=== PATIENT | male | born 1955 | race Hispanic/Latino ===

== ENCOUNTER 2017-11-14 19:35 | Emergency (ER) | payer SELFPAY ==
[2017-11-14] MEDS ORDERED: Adacel (T-DAP) 0.5 ML VIAL ONE (21:02)
[2017-11-14] MEDS ORDERED: Bacitracin Zinc 1 Packet ONE (21:02)
[2017-11-14] MEDS ORDERED: cloNIDine 0.1 MG TAB ONE (21:20)
== END 2017-11-14 21:40 | disposition home or self-care (01) ==
LOC: ERS 19:35
DX: L03.011 Cellulitis of right finger (principal); I10 Essential (primary) hypertension; E11.9 Type 2 diabetes mellitus without complications
CPT/HCPCS: 87070; 87077; 87186; 87205; 90471; 90715

== ENCOUNTER 2019-02-26 13:10 | Inpatient (IN) | payer SELFPAY ==
[2019-02-26 14:11] LABS: #Eosinphils 0.5 thou/uL (0.0-0.7); #Lymphocytes 1.7 thou/uL (1.20-3.40); #Monocytes 0.4 thou/uL (0.11-0.59); #Neutrophils 9.7 thou/uL (1.40-6.50); %Basophils 0.1 % (0.0-1.0); %Eosinophils 3.8 % (0.0-10.0); %Lymphocytes 14.1 % (21.0-51.0); %Monocytes 3.1 % (0.0-10.0); Hemoglobin 12.7 g/dL (14.0-18.0); Mean Corpuscular HGB CONC 35.7 g/dL (32.0-36.0); Mean Corpuscular Hemoglobin 32.5 pg (27.0-31.0); Mean Platelet Volume 7.5 fL (7.4-10.4); Platelet Count 315 thou/uL (130-400); RBC Distribution Width 11.6 % (11.5-14.5); White Blood Cell (WBC) Count 12.3 thou/uL (4.8-10.8)
--- NOTE | 2019-02-26 14:31 | RAD ---
XR Foot Lt 3 View STANDARD History: Infection Comparison: None. Findings: There is also normal integrity and pathologic fracture of the fourth metatarsal neck. There is also pathologic fracture of the fourth proximal phalanx base. Loss of normal cortical integrity of the distal phalanx of the fourth toe. Mild vascular calcifications. Small plantar and dorsal calcaneal spurs. Impression: Osteomyelitis of the fourth metatarsal neck, proximal phalanx base, and distal phalanx wi th pathologic fractures of the metatarsal neck and proximal phalanx base.
[2019-02-26 14:38] LABS: ALT (SGPT) 19 U/L (8-55); AST (SGOT) 18 U/L (5-34); Albumin 4.2 g/dL (3.4-4.8); Alkaline Phosphatase 72 U/L (40-150); Anion Gap 15 mmol/L (10-20); BUN (Urea Nitrogen) 25 mg/dL (8.4-25.7); Bilirubin, Total 0.3 mg/dL (0.2-1.2); Calc. Creatinine Clearance 0 mL/min (70-130); Calcium 10.2 mg/dL (7.8-10.44); Carbon Dioxide 20 mmol/L (23-31); Chloride 106 mmol/L (98-107); Estimated GFR-MDRD 73; Globulin 3.6 g/dL (2.4-3.5); Glucose 157 mg/dL (80-115); Potassium 4.3 mmol/L (3.5-5.1); Protein, Total 7.8 g/dL (5.8-8.1); Sodium 137 mmol/L (136-145)
[2019-02-26] MEDS ORDERED: HYDROcodone/Acetaminophen 5/325 mg Tablet PO PRN ×2 (19:12)
[2019-02-26] MEDS ORDERED: Ondansetron ODT 4 MG TAB SL PRN ×2 (19:12→21:20)
[2019-02-26] MEDS ORDERED: Ondansetron PF 4 MG/2 ML Vial IVP PRN ×2 (19:12→21:20)
[2019-02-26] MEDS ORDERED: Acetaminophen 325 MG TAB PO PRN (19:12)
[2019-02-26 19:27] VITALS: BMI 26.9
[2019-02-26] MEDS ORDERED: Dextrose 50% Abboject 50 ML SYRINGE SLOW IVP PRN (21:20)
[2019-02-26] MEDS ORDERED: Acetaminophen 500 MG TAB PO PRN (21:20)
[2019-02-26] MEDS ORDERED: hydrALAZINE 20 MG/ML VIAL SLOW IVP PRN (21:20)
[2019-02-26] MEDS ORDERED: Dextrose 5% in Water 1,000 ML IV PRN (21:20)
[2019-02-26] MEDS ORDERED: HumaLOG 300 UNITS/3 ML VIAL SC PRN (21:20)
[2019-02-26] MEDS: Piperacillin/Tazobactam 3.375 GM in Sodium Chloride 0.9% 100 ML IVPB SCH (22:31)
--- NOTE | 2019-02-26 23:08 | HP ---
PRIMARY CARE PROVIDER: [facility] . CHIEF COMPLAINT: Left foot infection. HISTORY OF PRESENT ILLNESS: This is a 63-year-old Citizen Of The [place]-speaking male, who presents to [facility] Emergency Department complaining of persistent swelling, redness, and drainage to the left foot and specifically the left fourth toe. The patient noted ulceration of the dorsum on the fourth left toe approximately 4 weeks prior to this evaluation, seeking medical attention at his primary care provider. The patient received antibiotics orally for approximately 2 weeks, as well as received apparent intramuscular injections of antibiotics for approximately 4 days including local wound care at the clinic. The patient is unsure of the mechanism of injury and states he was unsure that he injured his foot until he saw discoloration and drainage. The patient has decreased sensation due to history of diabetes mellitus greater than 25 years. The patient underwent amputation of his right second toe several years prior to this evaluation due to diabetic complications and ulceration. The patient denies any specific increased pain in the foot due to loss of sensation. In the emergency room, the patient underwent general evaluation including plain radiographic imaging of the left foot showing destruction of the metatarsal neck and proximal phalanx of the fourth left toe. The patient received IV vancomycin 1 g and intravenous normal saline x1 liter. PAST MEDICAL HISTORY: 1. Diabetes mellitus type 2, greater than 25 years. 2. Hypertension. 3. Hyperlipidemia. 4. History of diabetic foot ulcer. PAST SURGICAL HISTORY: 1. Status post appendectomy. 2. Status post amputation of the second toe of the right foot. CURRENT MEDICATIONS: 1. Lisinopril 20 mg p.o. daily. 2. Glipizide 10 mg p.o. b.i.d. 3. Metformin 1000 mg p.o. b.i.d. ALLERGIES: NO KNOWN DRUG ALLERGIES. FAMILY HISTORY: Positive for diabetes mellitus and hypertension. SOCIAL HISTORY: The patient resides in the area, with his son. No current alcohol, tobacco, or illicit drug use. Accompanied by multiple family members including his daughter in the hospital. REVIEW OF SYSTEMS: CONSTITUTIONAL: Negative for weight loss or gain, ability to conduct usual activities. SKIN: Negative for rash, itching. EYES: Negative for double vision, pain. ENT/MOUTH: Negative for nose bleeding, neck stiffness, pain, tenderness. CARDIOVASCULAR: Negative for palpitations, dyspnea on exertion, orthopnea. RESPIRATORY: Negative for shortness of breath, wheezing, cough, hemoptysis, fever or night sweats. GASTROINTESTINAL: Negative for poor appetite, abdominal pain, heartburn, nausea, vomiting, constipation, or diarrhea. GENITOURINARY: Negative for urgency, frequency, dysuria, nocturia. MUSCULOSKELETAL: Negative for pain, swelling. NEUROLOGIC/PSYCHIATRIC: Negative for anxiety, depression. ALLERGY/IMMUNOLOGIC: Negative for skin rash, bleeding tendency. Otherwise negative except as stated per HPI. PHYSICAL EXAMINATION: VITAL SIGNS: On admission, blood pressure 179/67, pulse 112, respiratory rate 16, temperature 97.8 degrees Fahrenheit, O2 saturation 99% on room air. GENERAL APPEARANCE: This is a 63-year-old male, alert and oriented x3, Citizen Of [place]-speaking only, in on acute distress. HEENT: Pupils are equal, round, reactive to light and accommodation. Extraocular muscles are intact. No scleral icterus. No conjunctival injection. Nares patent. OP is clear. Teeth in fair repair. NECK: Supple. No cervical adenopathy. No thyromegaly. No carotid bruits. No JVD appreciated. Cervical spine with full active and passive range of motion. No meningeal signs noted. CHEST: Lungs are clear to auscultation bilaterally. CARDIOVASCULAR: S1-S2 without noted murmur, rub, or gallop. ABDOMEN: Rounded, soft, nontender, and nondistended. Bowel sounds are positive in all 4 quadrants. There is no hepatosplenomegaly. No abdominal bruits. No rebound or guarding appreciated. EXTREMITIES: Warm and dry with fair turgor. Left foot with mild edema and erythema at the distal aspect overlying the fourth metatarsal distally with ulceration and gangrenous changes of the left fourth toe. Maceration noted with blackened necrotic tissue circumferential. No tenderness to palpation. Decreased sensation to dull and sharp. Pulses are palpable distally at the dorsalis pedis, posterior tibial, and popliteal arteries bilaterally. Capillary refill less than 2 seconds. NEUROLOGIC: Cranial nerves 2 through 12 are grossly intact. Decreased sensation from the ankle to the entire foot bilaterally. PERTINENT LAB AND X-RAY FINDINGS: Basic metabolic profile within normal limits. Lactic acid level 1.3. LFTs within normal limits. CBC showed a white blood cell count of 12.3, hemoglobin 12.7, hematocrit 35.5, platelet count 315, with 79% neutrophils. Three views of the left foot dated 02/26/2019, showed osteomyelitis of the fourth metatarsal neck, proximal phalanx base and distal phalanx with pathological fractures of the metatarsal neck and proximal phalanx base. ASSESSMENT AND PLAN: 1. Left diabetic foot/osteomyelitis. The patient will be admitted to the medical floor. We will continue IV antibiotics with vancomycin 1 g IV q.12 hours with additional Zosyn 3.375 g IV q.6 hours. We will consult Wound Care Service for local care. Consult Vascular Surgery Service for evaluation and consideration for amputation. 2. Diabetes mellitus type 2 with peripheral neuropathy. Insulin sliding scale for reflexive coverage. Continue glipizide 10 mg b.i.d. and metformin 1000 mg b.i.d. Accu-Cheks before meals and at bedtime. ADA diet. 3. Hypertension. Resume lisinopril 20 mg daily. 4. Chronic kidney disease, stage 2. Avoid nephrotoxic agents and limit contrast exposure. Serial creatinine monitoring. 5. Prophylaxis. Update tetanus immunization prior to discharge. Pepcid 20 mg p.o. b.i.d. SCDs. 6. Code status is full. Surrogate medical decision maker is the patient's daughter. Job ID: [id number]
[2019-02-27] MEDS: Vancomycin HCl 1 GM in Premix Bag 1 BAG IVPB SCH ×2 (03:08→14:09)
[2019-02-27] MEDS: Piperacillin/Tazobactam 3.375 GM in Sodium Chloride 0.9% 100 ML IVPB SCH ×4 (03:10→21:30)
[2019-02-27 05:42] LABS: Hemoglobin A1c 8.3 % (4.0-6.0)
[2019-02-27 05:57] LABS: Potassium 4.2 mmol/L (3.5-5.1); Sodium 134 mmol/L (136-145)
[2019-02-27 05:58] LABS: Anion Gap 13 mmol/L (10-20); BUN (Urea Nitrogen) 20 mg/dL (8.4-25.7); Calc. Creatinine Clearance 113 mL/min (70-130); Calcium 9.4 mg/dL (7.8-10.44); Carbon Dioxide 25 mmol/L (23-31); Chloride 100 mmol/L (98-107); Estimated GFR-MDRD Greater than 90; Glucose 132 mg/dL (80-115)
[2019-02-27 06:13] LABS: Hemoglobin 12.4 g/dL (14.0-18.0); Mean Corpuscular HGB CONC 34.5 g/dL (32.0-36.0); Mean Corpuscular Hemoglobin 31.6 pg (27.0-31.0); Mean Corpuscular Volume 91.6 fL (78.0-98.0); Mean Platelet Volume 7.2 fL (7.4-10.4); Platelet Count 272 thou/uL (130-400); RBC Distribution Width 11.7 % (11.5-14.5); Red Blood Cell (RBC) Count 3.93 mill/uL (4.70-6.10)
[2019-02-27 06:25] LABS: Band 3 % (5-11); Eosinophils 6 % (0-10); Lymphocytes 24 % (21-51); MDiff Complete? YES; Monocytes 3 % (0-10); Neutrophil 63 % (42-75); Reactive Lymphocytes 1 % (0-10)
[2019-02-27] MEDS: Famotidine 20 MG TAB PO SCH ×2 (08:01→19:48)
[2019-02-27] MEDS: metFORMIN 500 MG TAB PO SCH ×2 (08:02→17:09)
[2019-02-27] MEDS: Lisinopril 20 MG TAB PO SCH (08:02)
--- NOTE | 2019-02-27 16:53 | CON ---
DATE OF CONSULTATION: 02/27/2019 REQUESTING PHYSICIAN: Dr. Schwartz. CHIEF COMPLAINT: Left foot pain. HISTORY OF PRESENT ILLNESS: The patient is a 63-year-old diabetic man, who about a month ago noticed sore developing on the dorsum of his left fourth toe. He was started on oral antibiotics and eventually got intramuscular antibiotics, but in spite of that and local wound care, the wound on that toe progressed. It reached the point along with the degree of pain that he presented to the emergency room yesterday afternoon. He had eschar involving the dorsum of most of that toe and x-ray of his foot showed destruction of the distal metatarsal and proximal phalanx of the toe. The patient had a similar experience leading to amputation of the right second toe a few years ago. He has not had any antecedent crampy pain in his calves when he walks or nighttime pain in his feet while he professes to be able to feel his feet normally, his daughter, who assisted with translation and provided much of the history, says that she does not think he really does feel his feet normally. PAST MEDICAL HISTORY: Significant for hypertension and apparently, he has recently been told that he has high cholesterol. He has had a previous appendectomy and amputation of the right second toe. He has no known history of heart or lung disease. MEDICATIONS: His home medications are; 1. Lisinopril 20 mg a day. 2. Glipizide 10 mg b.i.d. 3. Metformin 1000 mg b.i.d. 4. A sliding scale insulin has been added to his regimen. 5. He has been started on Zosyn and vancomycin. ALLERGIES: DENIES ANY MEDICAL OR FOOD ALLERGIES. FAMILY HISTORY: Significant for diabetes and hypertension. SOCIAL HISTORY: He is a nonsmoker. Does not drink alcohol. REVIEW OF SYSTEMS: Negative for any chest pain, pressure, or squeezing. Negative for any shortness of breath. Negative for any claudication. PHYSICAL EXAMINATION: GENERAL: He is not toxic appearing and he is in no distress. VITAL SIGNS: His temperature in the emergency room was 97.8 and his T-max since admission to the [facility] has been 98.1. Initially, his heart rate was 112 and blood pressure 179/67. At the time of transfer out of the emergency room, his heart rate was 96 and blood pressure 141/83. Currently, heart rate 92, blood pressure of 120/71, and room air O2 saturations are in the high 90s. Height 5 feet 8 inches and weight 177 pounds. HEENT: He has no xanthelasma. No JVD. No carotid bruits. CHEST: Clear to auscultation. HEART: He has a regular rate and rhythm. ABDOMEN: Soft and nontender. EXTREMITIES: He has palpable radial, femoral, popliteal, and dorsalis pedis pulses bilaterally with a well-healed surgical scar on his right foot consistent with ray amputation of the second toe on the left foot. Probably the dorsum of the fourth toe was involved with an eschar from the base of the nail to the metatarsal proximal phalangeal joint and that eschar is beginning to separate. There is a faint foul odor associated with it, but no gross purulence. There is some darkening of the skin along the dorsum of the foot at the base of that toe, but there is no cellulitic changes or streaking. LABORATORY DATA: His laboratory exam showed a white count of 12.3 in the emergency room with 79% neutrophils and no bands. This morning his white count is 9.0 with 63% neutrophils and 3 bands, hemoglobin is 12.4, and platelet count 272,000. In the emergency room, his glucose is 157 and it has been in the 130 to 160 range for the duration. Electrolytes were normal. Creatinine is 1.03, albumin 3.6, LFTs were normal, and calcium 10.2. Hemoglobin A1c was 8.3. He has an x-ray of his foot shows extensive vascular calcifications in the anterior tibial extending well into the dorsalis pedis in the foot as well as in the posterior tibial. There is a destruction of the distal metatarsal and proximal phalanx involving the left fourth toe. IMPRESSION AND RECOMMENDATIONS: Osteomyelitis of the fourth toe based on physical exam. He would appear to have adequate vascularity to heal an amputation of that toe and we will plan on a ray amputation. Job ID: [id number]
--- NOTE | 2019-02-27 22:33 | PDOC.HOSPP ---
- Subjective Subjective: Patient seen and examined for Osteomyelitis of foot. No fever or chills. No new complaints. No overnight events - Objective Vital Signs & Weight: Vital Signs (12 hours) Temp Pulse Resp BP Pulse Ox 02/27/19 20:30 100 02/27/19 20:00 97.7 F 92 18 132/79 98 02/27/19 15:21 97.9 F 90 16 145/78 H 100 02/27/19 11:20 97.9 F 95 18 111/70 97 Weight Admit Weight 177 lb Weight 177 lb I&O: 02/26/19 02/27/19 02/28/19 06:59 06:59 06:59 Intake Total 720 Balance 720 Result Diagrams: 02/27/19 05:22 02/27/19 05:22 Additional Labs: Accuchecks 02/27/19 02/27/19 02/27/19 20:03 15:26 11:21 POC Glucose 101 152 H 149 H 02/27/19 05:06 POC Glucose 146 H Radiology Reviewed by me: Yes (Foot XR - Osteo) ROS - Review of Systems All systems: All other ROS were reviewed and found negative. Respiratory: denies: cough, dry, shortness of breath, hemoptysis, SOB with excertion, pleuritic pain, sputum, wheezing, other Cardiovascular: denies: chest pain, palpitations, orthopnea, paroxysmal noc. dyspnea, edema, light headedness, other Gastrointestinal: denies: nausea, vomitting, abdominal pain, diarrhea, constipation, melena, hematochezia, other - Medication Medications: Active Medications Generic Name Dose Route Start Last Admin Trade Name Yasmaniq PRN Reason Stop Dose Admin Famotidine 20 mg 02/27/19 09:00 02/27/19 19:48 Pepcid PO 20 mg BID KIMBERLY Administration Glipizide 10 mg 02/27/19 08:00 02/27/19 17:09 Glucotrol Xl PO 10 mg BID-WM KIMBERLY Administration Piperacillin Sod/Tazobactam 100 mls @ 200 mls/hr 02/26/19 22:00 02/27/19 21: 30 Sod 3.375 gm/ Sodium Chloride IVPB 100 mls 0400,1000,1600,2200 KIMBERLY Administration Vancomycin HCl 1 gm/ Device 200 mls @ 200 mls/hr 02/27/19 02:00 02/27/19 14: 09 IVPB 200 mls 0200,1400 KIMBERLY Administration Lisinopril 20 mg 02/27/19 09:00 02/27/19 08:02 Zestril PO 20 mg DAILY KIMBERLY Administration Metformin HCl 1,000 mg 02/27/19 08:00 02/27/19 17:09 Glucophage PO 1,000 mg BID-WM KIMBERLY Administration - Exam NAD Neck: supple, no JVD Heart: RRR, no murmur, no gallops, no rubs Respiratory: CTAB, no wheezes, no rales, no ronchi Gastrointestinal: soft, non-tender, non-distended, normal bowel sounds Extremities: no edema (necrotic changes on left 4th toe) Hosp A/P (1) Toe osteomyelitis, left Code(s): M86.9 - OSTEOMYELITIS, UNSPECIFIED Status: Acute (2) Cellulitis of left foot Code(s): L03.116 - CELLULITIS OF LEFT LOWER LIMB Status: Acute (3) DM2 (diabetes mellitus, type 2) Qualifiers: Chronic kidney disease stage: stage 2 (mild) (4) HTN (hypertension) Code(s): I10 - ESSENTIAL (PRIMARY) HYPERTENSION - Plan Cont Vancomycin/Zosyn Monitor Vancomycin level Toe amputation on Friday Cont other meds as below
[2019-02-28] MEDS: Vancomycin HCl 1 GM in Premix Bag 1 BAG IVPB SCH ×2 (02:38→14:55)
[2019-02-28] MEDS: Piperacillin/Tazobactam 3.375 GM in Sodium Chloride 0.9% 100 ML IVPB SCH ×4 (03:52→21:50)
[2019-02-28] MEDS: Saccharomyces boulardii 250 MG CAP PO SCH (08:15)
[2019-02-28] MEDS: Lisinopril 20 MG TAB PO SCH (08:15)
[2019-02-28] MEDS: metFORMIN 500 MG TAB PO SCH (08:16)
[2019-02-28] MEDS: Famotidine 20 MG TAB PO SCH ×2 (08:16→19:49)
[2019-02-28] MEDS: HumaLOG 300 UNITS/3 ML VIAL SC PRN (16:59)
--- NOTE | 2019-02-28 19:53 | PDOC.HOSPP ---
- Subjective Subjective: Patient seen and examined for foot osteomyelitis. No fever. Pain controlled. No new complaints. No overnight events. - Objective Vital Signs & Weight: Vital Signs (12 hours) Temp Pulse Resp BP Pulse Ox 02/28/19 13:10 98.1 F 100 20 127/71 92 L Weight Admit Weight 177 lb Weight 177 lb I&O: 02/27/19 02/28/19 03/01/19 06:59 06:59 06:59 Intake Total 720 3360 Balance 720 3360 Result Diagrams: 02/27/19 05:22 02/27/19 05:22 Additional Labs: Accuchecks 02/28/19 02/28/19 02/28/19 16:33 13:04 04:52 POC Glucose 166 H 171 H 103 02/27/19 20:03 POC Glucose 101 ROS - Review of Systems All systems: All other ROS were reviewed and found negative. Respiratory: denies: cough, dry, shortness of breath, hemoptysis, SOB with excertion, pleuritic pain, sputum, wheezing, other Cardiovascular: denies: chest pain, palpitations, orthopnea, paroxysmal noc. dyspnea, edema, light headedness, other - Medication Medications: Active Medications Generic Name Dose Route Start Last Admin Trade Name Freq PRN Reason Stop Dose Admin Famotidine 20 mg 02/27/19 09:00 02/28/19 19:49 Pepcid PO 20 mg BID KIMBERLY Administration Glipizide 10 mg 02/27/19 08:00 02/28/19 16:59 Glucotrol Xl PO 10 mg BID-WM KIMBERLY Administration Piperacillin Sod/Tazobactam 100 mls @ 200 mls/hr 02/26/19 22:00 02/28/19 14: 55 Sod 3.375 gm/ Sodium Chloride IVPB 100 mls 0400,1000,1600,2200 KIMBERLY Administration Vancomycin HCl 1 gm/ Device 200 mls @ 200 mls/hr 02/27/19 02:00 02/28/19 14: 55 IVPB 200 mls 0200,1400 KIMEBRLY Administration Insulin Human Lispro 0 units 02/26/19 21:20 02/28/19 16:59 Humalog SC 2 unit .MILD SLIDING SCALE PRN Administration Mild Correctional Scale Lisinopril 20 mg 02/27/19 09:00 02/28/19 08:15 Zestril PO 20 mg DAILY KIMBERLY Administration Metformin HCl 1,000 mg 02/27/19 08:00 02/28/19 08:16 Glucophage PO 1,000 mg BID-WM KIMBERLY Administration Saccharomyces Boulardii 250 mg 02/28/19 09:00 02/28/19 08:15 Florastor PO 250 mg DAILY KIMBERLY Administration - Exam NAD Heart: RRR, no rubs Respiratory: CTAB, no rales Gastrointestinal: soft, non-distended Extremities: no edema (left toe lesion looks same) Psychiatric: A&O x 3 Hosp A/P (1) Toe osteomyelitis, left Code(s): M86.9 - OSTEOMYELITIS, UNSPECIFIED Status: Acute (2) Cellulitis of left foot Code(s): L03.116 - CELLULITIS OF LEFT LOWER LIMB Status: Acute (3) DM2 (diabetes mellitus, type 2) Qualifiers: Chronic kidney disease stage: stage 2 (mild) (4) HTN (hypertension) Code(s): I10 - ESSENTIAL (PRIMARY) HYPERTENSION - Plan Cont IV Vancomycin/Zosyn Monitor Vancomycin level Toe amputation in AM Cont to monitor Cont sliding scale Cont other meds as above
[2019-03-01] MEDS: Vancomycin HCl 1 GM in Premix Bag 1 BAG IVPB SCH ×2 (01:37→14:47)
[2019-03-01] MEDS: Piperacillin/Tazobactam 3.375 GM in Sodium Chloride 0.9% 100 ML IVPB SCH ×4 (03:24→22:00)
[2019-03-01] MEDS: Famotidine 20 MG TAB PO SCH ×2 (08:57→19:59)
[2019-03-01] MEDS: Lisinopril 20 MG TAB PO SCH (08:57)
[2019-03-01] MEDS: Saccharomyces boulardii 250 MG CAP PO SCH (08:57)
[2019-03-01] MEDS ORDERED: Piperacillin/Tazobactam 3.375 GM VIAL ONE (10:07)
[2019-03-01] MEDS ORDERED: Fentanyl 100 MCG/2 ML VIAL ONE ×2 (10:07→11:50)
[2019-03-01] MEDS ORDERED: Sodium Chloride 0.9% 100 ML ONE (10:07)
[2019-03-01] MEDS ORDERED: HYDROcodone/Acetaminophen 5/325 mg Tablet PO PRN ×2 (11:45)
[2019-03-01] MEDS ORDERED: Ondansetron PF 4 MG/2 ML Vial ONE (12:44)
[2019-03-01] MEDS ORDERED: PROPOFOL 200 MG/20 ML VIAL ONE (12:44)
[2019-03-01] MEDS ORDERED: PHENYLEPHRINE-NS 100 MCG/ML 10 ML SYRINGE ONE (12:44)
[2019-03-01] MEDS ORDERED: Lidocaine 1% PF 5 ML VIAL ONE (12:44)
[2019-03-01] MEDS ORDERED: ePHEDrine 50 MG/ML VIAL ONE (12:44)
--- NOTE | 2019-03-01 15:31 | EKG ---
Test Reason : PREOP Blood Pressure : / mmHG Vent. Rate : 093 BPM Atrial Rate : 093 BPM P-R Int : 186 ms QRS Dur : 078 ms QT Int : 366 ms P-R-T Axes : 018 023 020 degrees QTc Int : 455 ms Normal sinus rhythm Normal ECG No previous ECGs available Confirmed by GEORGE YOUSIF, DR. Chris ([id number]) on 03/01/2019 3:31:25 PM Referred By: MOOKIE Confirmed By:DR. Aries VAZQUEZ MD
--- NOTE | 2019-03-01 16:25 | OP ---
DATE OF PROCEDURE: 03/01/2019 PROCEDURE PERFORMED: Left fourth toe ray amputation. PREOPERATIVE DIAGNOSIS: Osteomyelitis of left fourth toe. POSTOPERATIVE DIAGNOSIS: Osteomyelitis of left fourth toe. ANESTHESIA: General LMA. INDICATIONS: The patient is a 63-year-old diabetic man, who presented with progressive tissue loss and eschar formation on the dorsum of his left fourth toe. X-rays of the foot showed bony destruction of the distal metatarsal and proximal phalanx at that level. In spite of vascular calcifications within the foot noted on that x-ray, he had a palpable dorsalis pedis pulse. He is now taken to the operating room for amputation of his toe. FINDINGS: Turbid fluid in the metatarsophalangeal joint, but no gross purulence. That turbid fluid was cultured along with the disarticulated metatarsal head. The metatarsal at the point of transection was hard and appeared viable. DESCRIPTION OF PROCEDURE: After informed consent was obtained, the patient was taken to the operating room, placed in supine position on the operating table. After the induction of general anesthesia and confirmation of the surgical site for the amputation, his left foot and lower leg were prepped and draped in sterile fashion. A 15-blade scalpel was used to sharply incise the skin in a V-pattern at the base of the left fourth toe just proximal to the extent of the eschar. A straight line extension of that incision from the apex of the V was then taken onto the forefoot and extended deep with the electrocautery. Probing the wound led to the expression of some turbid yellow fluid, which was cultured on probing the wound and extending that area could be appreciated. This represented the joint space rather than the level of destruction of the metatarsal itself. The skin incision was extended proximally to allow for exposure of and transection of the metatarsal proximal to the level of its destruction. The metatarsal head had a disarticulated by the destructive process. This was debrided out and sent for a separate culture. The scalpel was used to extend the skin incision around the base of the toe with the distal apex just on the distal edge of the plantar surface of the foot. The electrocautery was used to complete the excision of the toe after the metatarsal had been transected with bone tahira. Rongeurs and a bone rasp were used to smooth off the transected metatarsal. A bulb syringe was used to irrigate the wounds to allow for its inspection and debridement of remaining necrotic debris. A curette was used to debride the wound distally, where adjacent to the third toe of the wound had essentially been an open wound. Pulsavac device was used to forcefully irrigate the wound with 3 L of sterile irrigant. A 0.25-inch Hampton was placed into the wound bed and secured in place with a transfixing nylon suture through the distal apex of the wound through plantar skin. Interrupted Vicryl subcutaneous and nylon skin sutures were then used to achieve a loose approximation of the wound, where the wound had been primarily incised on the forefoot. A good approximation was readily achievable at the ellipse between the remaining third and fifth toes. It was not feasible to do this without tension and it was left open somewhat. An Adaptic gauze was placed over the sutures at the resection bed of the amputation to avoid adherence of gauze padding between the toes to the sutures, and then, the wound was dressed with a Kerlix roll and an Juan Jose wrap. The patient was awakened in the operating room and taken to the recovery area in stable condition. Blood loss during the procedure was minimal. Instrument, needle, and sponge counts were correct. Job ID: [id number]
[2019-03-01] MEDS ORDERED: Temazepam 15 MG CAP PO PRN (19:23)
--- NOTE | 2019-03-01 23:20 | PDOC.HOSPP ---
- Subjective Subjective: Patient seen and examined for Osteomyelitis. No CP/SOB. No fever. Pain controlled. No new complaints. No overnight events - Objective Vital Signs & Weight: Vital Signs (12 hours) Temp Pulse Resp BP Pulse Ox 03/01/19 21:45 96 03/01/19 20:00 98.0 F 97 16 154/79 H 96 03/01/19 12:37 98.6 F 94 18 163/85 H 98 Weight Admit Weight 177 lb Weight 177 lb I&O: 02/28/19 03/01/19 03/02/19 06:59 06:59 06:59 Intake Total 720 4260 600 Balance 720 4260 600 Result Diagrams: 02/27/19 05:22 02/27/19 05:22 Additional Labs: Accuchecks 03/01/19 03/01/19 03/01/19 19:57 17:09 12:53 POC Glucose 118 H 198 H 136 H 03/01/19 05:51 POC Glucose 194 H ROS - Review of Systems All systems: All other ROS were reviewed and found negative. Respiratory: denies: cough, dry, shortness of breath, hemoptysis, SOB with excertion, pleuritic pain, sputum, wheezing, other Cardiovascular: denies: chest pain, palpitations, orthopnea, paroxysmal noc. dyspnea, edema, light headedness, other Gastrointestinal: denies: nausea, vomitting, abdominal pain, diarrhea, constipation, melena, hematochezia, other - Medication Medications: Active Medications Generic Name Dose Route Start Last Admin Trade Name Freq PRN Reason Stop Dose Admin Acetaminophen 1,000 mg 02/26/19 21:20 02/28/19 22:54 Tylenol PO 1,000 mg Q6H PRN Administration Mild Pain (1-3) Hydrocodone Bitart/Acetaminophen 1 tab 03/01/19 11:45 03/01/19 22:37 [place] 5/325 PO 1 tab Q4H PRN Administration Moderate Pain (4-6) Famotidine 20 mg 02/27/19 09:00 03/01/19 19:59 Pepcid PO 20 mg BID KIMBERLY Administration Glipizide 10 mg 02/27/19 08:00 02/28/19 16:59 Glucotrol Xl PO 10 mg BID-WM KIMBERLY Administration Piperacillin Sod/Tazobactam 100 mls @ 200 mls/hr 02/26/19 22:00 03/01/19 22: 00 Sod 3.375 gm/ Sodium Chloride IVPB 100 mls 0400,1000,1600,2200 KIMBERLY Administration Insulin Human Lispro 0 units 02/26/19 21:20 02/28/19 16:59 Humalog SC 2 unit .MILD SLIDING SCALE PRN Administration Mild Correctional Scale Lisinopril 20 mg 02/27/19 09:00 03/01/19 08:57 Zestril PO Not Given DAILY KIMBERLY Metformin HCl 1,000 mg 02/27/19 08:00 02/28/19 08:16 Glucophage PO 1,000 mg BID-WM KIMBERLY Administration Saccharomyces Boulardii 250 mg 02/28/19 09:00 03/01/19 08:57 Florastor PO Not Given DAILY KIMBERLY - Exam NAD Heart: RRR, no rubs Respiratory: CTAB, no rales Gastrointestinal: soft, non-distended Extremities: no cyanosis, no edema (dressing +) Hosp A/P (1) Toe osteomyelitis, left Code(s): M86.9 - OSTEOMYELITIS, UNSPECIFIED Status: Acute (2) Cellulitis of left foot Code(s): L03.116 - CELLULITIS OF LEFT LOWER LIMB Status: Acute (3) DM2 (diabetes mellitus, type 2) Qualifiers: Chronic kidney disease stage: stage 2 (mild) (4) HTN (hypertension) Code(s): I10 - ESSENTIAL (PRIMARY) HYPERTENSION - Plan Cont IV Vancomycin/Zosyn Monitor Vancomycin level Cont sliding scale Cont other meds as above
[2019-03-02] MEDS: Vancomycin HCl 1.25 GM in Sodium Chloride 0.9% 250 ML 250 ML IVPB SCH ×2 (02:06→14:56)
[2019-03-02] MEDS: Piperacillin/Tazobactam 3.375 GM in Sodium Chloride 0.9% 100 ML IVPB SCH ×3 (03:57→15:00)
[2019-03-02] MEDS: Famotidine 20 MG TAB PO SCH (08:59)
[2019-03-02] MEDS: metFORMIN 500 MG TAB PO SCH ×2 (08:59→14:56)
[2019-03-02] MEDS: Lisinopril 20 MG TAB PO SCH (08:59)
[2019-03-02] MEDS: Saccharomyces boulardii 250 MG CAP PO SCH (08:59)
[2019-03-02] MEDS: HumaLOG 300 UNITS/3 ML VIAL SC PRN (11:50)
[2019-03-02] MEDS ORDERED: Clopidogrel Bisulfate 75 MG TAB ONE (13:59)
[2019-03-02] MEDS ORDERED: glipiZIDE 5 MG TAB PO SCH (16:30)
--- NOTE | 2019-03-02 17:48 | DIS ---
DATE OF ADMISSION: 02/26/2019 DATE OF DISCHARGE: 03/02/2019 DISCHARGE DISPOSITION: Home. FOLLOWUP: With [facility] in 1 week. The patient will also follow up with vascular surgeon, Dr. Correa as an outpatient. ALLERGIES: NO KNOWN DRUG ALLERGIES. DISCHARGE MEDICATIONS: 1. Augmentin 875 mg twice daily for next 10 days. 2. All other home medications were left unchanged. The patient was seen and examined on the day of discharge. Denies any new complaints. No chest pain, shortness of breath, or palpitations. BRIEF HOSPITAL COURSE: The patient is a 63-year-old male with diabetes mellitus type 2, hypertension, and hyperlipidemia, presented to the hospital with left foot infection. His workup was consistent with left foot cellulitis along with osteomyelitis of the fourth metatarsal neck, proximal phalanx base, and distal phalanx with pathologic fractures of the metatarsal neck and proximal phalanx base. He underwent left fourth toe ray amputation. He was placed on broad-spectrum antibiotics during this hospital stay. The toe tissue culture is growing gram-negative rods (few). Identification and susceptibilities are pending at this time. Primary care physician advised to follow. He has been cleared by Dr. Correa for discharge. Family has been educated on home wound care. FINAL DIAGNOSES: 1. Sepsis secondary to left foot cellulitis with left fourth toe osteomyelitis. 2. Diabetes mellitus type 2 with diabetic neuropathy. 3. Hypertension. 4. Hyperlipidemia. 5. Chronic kidney disease stage 2. 6. Hyponatremia at 134. 7. Mild metabolic acidosis. 8. Chronic anemia. Plan of care was discussed with the patient in detail. He stated understanding. Job ID: [id number]
[2019-03-02 18:20] VITALS: BP 147/78; TEMP 98
[2019-03-03] MEDS ORDERED: glipiZIDE 5 MG TAB PO SCH (07:30)
== END 2019-03-02 18:43 | disposition home or self-care (01) | DRG 854 ==
LOC: ERS 13:10 → T4-B 19:11
PROVIDERS: ADMIT Family Medicine; ATTEND Family Medicine
PROC: 0Y6N0ZD Detachment at Left Foot, Partial 4th Ray, Open Approach (ICD-10-PCS; principal; 2019-03-01)
DX: A41.9 Sepsis, unspecified organism (principal); M86.8X7 Other osteomyelitis, ankle and foot; L03.116 Cellulitis of left lower limb; E87.1 Hypo-osmolality and hyponatremia; E87.2 Acidosis; E11.69 Type 2 diabetes mellitus with other specified complication; E78.5 Hyperlipidemia, unspecified; E11.42 Type 2 diabetes mellitus with diabetic polyneuropathy; N18.2 Chronic kidney disease, stage 2 (mild); D63.1 Anemia in chronic kidney disease; I12.9 Hypertensive chronic kidney disease with stage 1 through stage 4 chronic kidney disease, or unspecified chronic kidney disease; E11.22 Type 2 diabetes mellitus with diabetic chronic kidney disease; Z89.421 Acquired absence of other right toe(s); Z79.84 Long term (current) use of oral hypoglycemic drugs
CPT/HCPCS: 36415; 36416; 80048; 80053; 80202; 83036; 83605; 85007; 85025; 85027; 87040; 87070; 87077; 87149; 87186; 87205; 88305; 88311; 93005; 93010; 96365; J2543; J3010; J3370; J3490; J7050